=== PATIENT | male | born 1955 | race Caucasian/White ===

== ENCOUNTER → 2017-03-11 | Outpatient (CLI) | payer OTHER ==
[~2017-03-11] MED LIST: ADVAIR 250-501 EACH INH; AMLODIPINE BESYL5 MG PO; ASPIRIN LO-DOSE81 MG PO; ATIVAN2 MG PO; CELEXA40 MG PO; COLACE100 MG PO; FLONASE 50 MCG/16 GM NOSE; GLUCOPHAGE500 MG PO; KLOR-CON 1010 MEQ PO; LASIX40 MG PO; LIPITOR40 MG PO; LOPRESSOR50 MG PO; NITROGLYCERIN4.9 GM SL; NUCYNTA50 MG PO; PROTONIX40 MG PO; PROVENTIL OR V6.7 GM INH; ZESTRIL2.5 MG PO; ZOCOR80 MG PO
[2017-03-11 12:26] LABS: ALBUMIN 3.7 gm/dL (3.5-5.0); ALK PHOS 88 IU/L (33-138); ALT 51 IU/L (12-78); ANION GAP 12.7 (10.0-19.0); AST 13 IU/L (10-40); BLOOD UREA NITROGEN 18 mg/dL (6-24); CHLORIDE 107 mMol/L (96-110); CO2 25 mMol/L (22-32); CPK 72 IU/L (35-332); CREATININE 1.2 mg/dL (0.6-1.3); ESTIMATED GFR (MDRD EQUATION) > 60; POTASSIUM 4.7 mMol/L (3.7-5.1); SODIUM 140 mMol/L (135-145); TOTAL BILIRUBIN 0.5 mg/dL (0.0-1.5); TOTAL PROTEIN 7.4 g/dL (6.0-8.4)
== END | disposition disaster alternative care site (69) ==
LOC: LNHI 11:59
PROVIDERS: Internal Medicine Interventional Cardiology
DX: E78.5 Hyperlipidemia, unspecified (principal); I10 Essential (primary) hypertension; I25.10 Atherosclerotic heart disease of native coronary artery without angina pectoris; R07.9 Chest pain, unspecified

== ENCOUNTER 2017-03-13 07:54 | Outpatient (CLI) | payer OTHER ==
--- NOTE | ~2017-03-13 | PUL ---
PATIENT'S NAME: FLAQUITA URIBE [facility] AGE: 61 Y [address] ROOM: [place] [address] LOCATION: GPCU ADMIT DATE: 03/13/2017 Pulmonary DISCHARGE DATE: 03/13/2017 FAMILY PHYSICIAN: Jesús Nelson MD ATTENDING PHYSICIAN: Lorena Peoples NAME OF PROCEDURE: Pulmonary Function Test DATE OF PROCEDURE: March 13, 2017 TECH: SILVERIO Maldonado REASON FOR EXAM: Pre-surgical evaluation RESULTS: Spirometry reveals normal FVC at 3.43 which is 83% predicted, decreased FEV1 at 2.35 which is 75% predicted, decreased FEV1/FVC ratio at 68%. There is a significant bronchodilator response at the level of FEV1. PHYSICIAN INTERPRETATION: Mild obstruction airway disease with a mild bronchodilator response. MD JESSICA MCKEON/haile /[id number] dtt: 03/23/17 1052 Genia George S. dtd: 03/17/17 1127
--- NOTE | ~2017-03-13 | CATH ---
Cardiac Diagnostic Report Demographics Patient Name JOJO Ro Gender Male Date of 1955 Age 61 year(s) Patient Number [id number] Date of Study 03/13/2017 Visit Number [id number] Room Number G63[address] [place] [id number] Ht 137.16 cm Wt 93 kg Referring [facility] Primary Physician Physician Lorena TOVAR Performing [facility] Secondary Physician Physician Lorena TOVAR Diagnostic [facility] Assisting Physician Physician Lorena TOVAR Interventional Physician Catapult And Arresting Gear Officer Physician Findings and Conclusions Diagnostic Findings and Conclusion Multi vessel coronary artery disease. Obstructive in-stent restenosis of RCA and LAD, LCx. Diagnostic Recommendations Refer for CT consult, given triple vessel disease with significant ISR in all three vessels. Reviewed angiogram with Dr. Sousa. He is scheduled for consult in CT surgery clinic on 03/16/2017. Procedure Description The patient was brought to the diagnostic cardiac catheterization-EP laboratory in the fasting, non-sedated state. Informed consent was obtained in the written and verbal form after the risks and benefits were explained. The patient had no further questions and agreed to proceed. The planned puncture-incision site(s) were shaved and prepped with ChloraPrep and draped in the usual sterile manner. Conscious sedation, supplemental oxygen, and pain control medications were delivered by a registered nurse under physician guidance. Surface ECG rhythm, blood pressure measurement, and pulse oximetry were monitored throughout the procedure. Arterial access. The access site was infiltrated with lidocaine. The vessel was entered with the Seldinger technique. A sheath was advanced into the vessel and used for catheter placement. Selective left coronary angiography. A catheter was advanced into the left coronary vessel ostium under Fluoroscopic guidance. Contrast was injected by hand. Images were obtained in multiple projections. Selective right coronary angiography. A catheter was advanced into the right coronary vessel ostium under fluoroscopic guidance. Contrast was injected by hand. Images were obtained in multiple projections. Arterial artery hemostasis was achieved. The patient was transferred to pre-post surgical unit via cart accompanied by a nurse. The patient left the laboratory in stable condition. Diagnostic Cath Status: Elective Procedure Procedure Type Diagnostic procedure:Angiography:, Coronary Angios w/[facility] Indications: Unstable angina. The procedure was explained in detail to the patient. Risks, complications and alternative treatments were reviewed. Written consent was obtained. Medications Reviewed with Patient prior to Procedure. Angiographic Findings Dominance: Right Cardiac Arteries and Lesion Findings LMCA: Normal (0% Stenosis). LAD: Abnormal. Lesion on Mid LAD: 80% stenosis . The lesion was previously treated on 05/18/2010 with the following techniques: drug eluting stent. This is in-stentrestenosis. Lesion on 1st Diag: Ostial.60% stenosis . LCx: Abnormal. Lesion on Mid CX: 80% stenosis . The lesion was previously treated with the following techniques: stent unknown type. This is in-stentrestenosis. RCA: Abnormal.PL and PDA is normal Lesion on Prox RCA: 90% stenosis .Culprit lesion. Lesion on Mid RCA: 60% stenosis . Coronary Tree Procedure Data Procedure Date Date: 03/13/2017Start: 09:35 AMEnd: 11:14 AM Entry Locations - Retrograde Percutaneous access was performed through the Right Femoral artery (Primary location). A 6 Fr sheath was inserted. Procedure Medications Order and Administration + + + + + !Time !Medication !Dosage !Route ! + + + + + !03/13/2017 09:30 AM !Versed !1 mg !I.V. ! + + + + + !03/13/2017 09:35 AM !Fentanyl !25 mcg !I.V. ! + + + + + !03/13/2017 09:38 AM !Versed !0.5 mg !I.V. ! + + + + + !03/13/2017 09:38 AM !Fentanyl !25 mcg !I.V. ! + + + + + !03/13/2017 10:04 AM !Versed !0.5 mg !I.V. ! + + + + + !03/13/2017 10:05 AM !Fentanyl !25 mcg !I.V. ! + + + + + !03/13/2017 10:06 AM !Heparin (ACC_3) !4000 units !I.V. bolus ! + + + + + !03/13/2017 10:49 AM !0.9% NaCl !500 ml !I.V. bolus ! + + + + + Devices Used - A6 Fr. BS JL 4 Diag. Catheterwas used for:Left coronary angiography. - A5 Fr. BS JR 4 Diag. Catheterwas used for:Right coronary angiography. Contrast Material - Isovue 41772 ml Fluoroscopy Time: Diagnostic: 2:24 minutes. Total: 2:24 minutes. Estimated Blood Loss: 5 ml. Medical History History of Disease + + + + !Diagnosis !Date !Comments ! + + + + !Hypertension ! ! ! + + + + Allergies - Codiene. - Other:(tramadol). Risk Factors The patient risk factors include:prior PCI on 05/18/2010;hypercholesterolemia, hypertension, family history of premature CAD, last creatinine: 1.2 mg/dl, creatinine clearance: 87.19 ml/min, dyslipidemia, prior heart failure and prior MS . Admission Data Admission Date: 03/13/2017 Admission Time: 07:54 AM Admit Source: Other Insurance Payors: Private health insurance. Admission Medications + +------+------+ + + + + !Medication !Dosage!Times !Last !Last !Administered !Comments ! ! ! !Per !Delivery !Delivery ! ! ! ! ! !Day !Date !Time ! ! ! + +------+------+ + + + + !Aspirin ! ! !03/13/2017 !12:00 AM !Yes ! ! !(any) ! ! ! ! ! ! ! + +------+------+ + + + + !Beta ! ! !03/13/2017 !12:00 AM !Yes ! ! !Marina ! ! ! ! ! ! ! !(any) ! ! ! ! ! ! ! + +------+------+ + + + + Clinical Evaluation Leading to Procedure Diagnosed on 03/11/2017 02:20 PM. - The patient's CAD presentation was assessed as: Unstable angina. - The patient's anginal syndrome during the past two weeks was assessed as: Class III according to the [place] Cardiovascular Society Classification System (CCS). Anti-anginal medications were prescribed during the past two weeks. The medications are: Beta Blockers and Ca channel Blockers. - The patient has been in a state of heart failure within the past two weeks. - The patient's heart failure status was assessed as NYHA Class II, with CHF symptoms of MCLAIN. Hemodynamics Condition: Rest O2 Consumption: Estimated: 206.07Heart Rate: 70 bpm Pressures (mmHg) +-----+ + !Site !Pressure ! +-----+ + !AO !109/ (92) ! +-----+ + !AO !/69 (83) ! +-----+ + Shunts Oxygen Values O2 Consumption 206.07 Signatures dtt: LORENA CLARKE dtd: 03/13/17 0935 Physician Self Edit
[~2017-03-13 07:54] MED LIST changes: -COLACE100 MG PO; -GLUCOPHAGE500 MG PO; -KLOR-CON 1010 MEQ PO; -LASIX40 MG PO; -LIPITOR40 MG PO; -NITROGLYCERIN4.9 GM SL; -NUCYNTA50 MG PO; -ZESTRIL2.5 MG PO
[2017-03-13 13:49] LABS: BICARBONATE 24.2 mmol/L (18.0-23.0); PCO2 40 mmHg (35-45); PO2 80 mmHg (80-90)
[2017-03-13 15:23] LABS: BILIRUBIN URINE NEGATIVE (NEGATIVE); BLOOD URINE NEGATIVE /UL (NEGATIVE); COLOR URINE YELLOW (YELLOW); GLUCOSE URINE NEGATIVE (NEGATIVE); KETONE URINE NEGATIVE (NEGATIVE); LEUKOCYTES URINE NEGATIVE /UL (NEGATIVE); NITRITE URINE NEGATIVE (NEGATIVE); PROTEIN URINE NEGATIVE (NEGATIVE); SPEC GRAVITY URINE 1.015 (1.003-1.035); TURBIDITY URINE CLEAR (CLEAR); UROBILINOGEN URINE NORMAL (NORMAL)
== END 2017-03-13 15:25 | disposition disaster alternative care site (69) ==
LOC: GCAT 07:54 → GPCU 07:54 → GPOC 08:00 → GCAT 08:00 → GPCU 10:26 → GCAT 15:25
PROVIDERS: Internal Medicine Interventional Cardiology
DX: I25.10 Atherosclerotic heart disease of native coronary artery without angina pectoris (principal); I10 Essential (primary) hypertension; E78.5 Hyperlipidemia, unspecified
CPT/HCPCS: C1894; J0583; J1644; J2001; J2250; J2370; J3010; J7030; J7060

== ENCOUNTER 2017-03-16 13:29 | Inpatient (IN) | payer OTHER ==
[~2017-03-16] VITALS: Ht 167.6 cm; Wt 91.2 kg
--- NOTE | ~2017-03-16 | CON ---
PATIENT'S NAME: FLAQUITA URIBE [facility] AGE: 61 Y [address] ROOM: [place] [address] LOCATION: GPOC ADMIT DATE: 03/16/2017 Consultation DISCHARGE DATE: FAMILY PHYSICIAN: Jesús Nelson MD ATTENDING PHYSICIAN: Sumanth Salamanca DATE OF CONSULTATION: 03/16/2017 REQUESTING PHYSICIAN: Lorena Peoples M.D. REASON FOR CONSULTATION: Multivessel coronary artery disease. HISTORY OF PRESENT ILLNESS: The patient is a 61-year-old white male with complaints of dyspnea on exertion as well as worsening chest discomfort that has been occurring over the last 2 weeks. There was also some left arm radiation associated with the unstable angina. The patient does have a history of coronary artery disease with previous stent placement approximately 7 years ago. The stents were placed to the RCA and LAD and left circumflex. The patient was seen in consultation by Dr. Peoples for the complaints of chest discomfort. It is recommended that he undergo a cardiac catheterization, especially in light of his history. The patient presents for this left heart catheterization on March 13, 2017. Findings were for obstructive In-stent restenosis of the RCA and LAD and circumflex. The findings revealed no left main disease. To the LAD, there is mid 80% in-stent restenoses. To the first diagonal, 60% occlusion. To the mid circumflex, 80% in-stent restenosis and a 90% RCA in-stent restenosis. There is also to the midportion of the RCA, 60% occlusion. The EF was estimated to be at 60%. The patient discharged after discussing with Dr. Peoples the findings of the cardiac catheterization and planned to be seen in consultation today by Dr. Salamanca in cardiothoracic surgery for consideration of surgical revascularization for which the patient hoped to proceed with surgery on March 17. PAST MEDICAL HISTORY: ILLNESSES: 1. Dyslipidemia. 2. Hypertension. 3. Previous myocardial infarction. 4. Renal insufficiency. 5. Depression. 6. GERD. 7. Seasonal allergies. PATIENT'S NAME: FLAQUITA URIBE [facility] AGE: 61 Y [address] ROOM: [place] [address] LOCATION: GPOC ADMIT DATE: 03/16/2017 Consultation DISCHARGE DATE: FAMILY PHYSICIAN: Jesús Nelson MD ATTENDING PHYSICIAN: Sumanth Salamanca SURGERIES/PROCEDURES: 1. Cervical disc fusion. 2. Sinus and nasal surgery. 3. Right rotator cuff surgery. 4. Percutaneous intervention with stenting, multiple in 2009 this to the RCA and LAD in circumflex. 5. Appendectomy. 6. Tonsillectomy. ALLERGIES: EES, CODEINE, AND TRAMADOL ALL WHICH CAUSES SHORTNESS OF BREATH. SOCIAL HISTORY: The patient is . He and his have been 41 years as of today. 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 At that time, he was smoking three packs of cigarettes a day and has done so for 35 years. He has since discontinued smoking. He does not imbibe. He has 3 grown children. FAMILY HISTORY: Significant for premature coronary artery disease with his mother having a severe myocardial infarction and his maternal grandfather having severe myocardial infarction for which his grandfather . His father had history with prostate cancer. CURRENT MEDICATIONS: Include: 1. Albuterol 1 puff q.4 hours p.r.n. for shortness of breath. 2. Amlodipine 5 mg daily. 3. Aspirin 81 mg daily. 4. Celexa 40 mg q.a.m. 5. Flonase 50 mcg one puff b.i.d. 6. Advair 250/50 one puff b.i.d. 7. Ativan 2 mg at bedtime. 8. Lopressor 75 mg p.o. b.i.d. 9. Protonix 40 mg daily. 10. Zocor 40 mg at bedtime. SYSTEM REVIEW: GENERAL: He has not had any change in his weight or appetite. No fever, chills, or sweats. No obvious fatigue or change in routine habits. HEENT: No visual complaints. Does wear corrective lenses. No hearing complaints. ALLERGIES: He does have seasonal allergies for which he takes medication. No PATIENT'S NAME: FLAQUITA URIBE [facility] AGE: 61 Y [address] ROOM: [place], [place] [address] LOCATION: GPOC ADMIT DATE: 03/16/2017 Consultation DISCHARGE DATE: FAMILY PHYSICIAN: Jesús Nelson MD ATTENDING PHYSICIAN: Sumanth Salamanca difficulty with swallowing, change in voice, or hoarseness. RESPIRATORY: No unusual cough. Some occasional wheezing with history of asthma. He has been dyspneic on exertion, especially over the last 2 weeks. CARDIOVASCULAR: Some intermittent chest discomfort with no overt chest pain. No intermittent claudication. No problems with persistent lower extremity edema. GI: No nausea, vomiting, constipation, or diarrhea. There is history of GERD for which he takes medication. : No voiding complaints. MUSCULOSKELETAL: Some generalized arthritic aches and pains. Does not require ambulatory devices. NEUROLOGIC: No frequent or severe headaches. No history of seizures, memory loss, or syncope. PSYCHIATRIC: Does have a history with depression. Does take antidepressant medication. ENDOCRINE: No diagnosed history of diabetes or thyroid conditions. INTEGUMENTARY: No known skin diseases. PHYSICAL EXAMINATION: VITAL SIGNS: Blood pressure 124/81, pulse is 68, respirations 18, temp is 97.9, O2 saturations 93% on room air. His height is 5 feet 6 inches. His weight is 205 pounds. GENERAL: He is a very pleasant. In no acute distress. His is present for the consultation. HEENT: Normocephalic with EOMIs intact. Conjunctivae clear. Atraumatic. LUNGS: Clear to auscultation to the anterior. CARDIOVASCULAR: Regular rate and rhythm with no murmur detected. ABDOMEN: Obese. Soft. Nontender by 4 quadrants. Positive bowel sounds throughout. EXTREMITIES: No overt varicosities or edema. MUSCULOSKELETAL: Good range of motion of bilateral upper and lower extremities. NEUROLOGICAL: Alert and oriented x3. Strength is symmetrical. SKIN: No suspicious skin lesions. LABORATORY AND TEST RESULTS: Pre-albumin is 34, hemoglobin A1C 0.6, TSH 2.24. PFT revealed moderate obstruction. Cholesterol 227, triglycerides 213, HDL 47, and LDL 138. Creatinine is 1.4. IMPRESSION: 1. Multivessel coronary artery disease with obstructive in-stent restenosis of the RCA, LAD, and left circumflex. 2. Renal insufficiency. 3. Elevated hemoglobin A1c. PATIENT'S NAME: FLAQUITA URIBE [facility] AGE: 61 Y [address] ROOM: [place] [address] LOCATION: GPOC ADMIT DATE: 03/16/2017 Consultation DISCHARGE DATE: FAMILY PHYSICIAN: Jesús Nelson MD ATTENDING PHYSICIAN: Sumanth Salamanca AND PLAN: Dr. Salamanca reviewed the findings of the cardiac catheterization with the patient and his . Discussion to include surgical revascularization to the obstructive areas consisting of 3 to 4 vessel bypass. Risks and benefits of the procedure were discussed. Length of stay and restrictions, thereafter, were covered. Discussion of the risks includes, but not limited to, bleeding, requiring transfusion, return to the operative suite, myocardial infarction, cerebrovascular accident, renal and/or pulmonary failure. Also discussed were arrhythmias and infection as well as operative and postoperative mortality. The patient does consent to proceed with surgical revascularization. The preoperative workup has been obtained and we will plan for March 17, 2017. We would like to thank Dr. Peoples for allowing us to participate in the care of this very pleasant gentleman. CHRISTOFER AYERS APRN FOR SUMANTH SALAMANCA, DLQ/modl /[id number] d: 03/16/17 1841 t: 04/02/17 1524, CONSULTATION REPORT
--- NOTE | ~2017-03-16 | OR ---
PATIENT'S NAME: FLAQUITA CASTRO [facility] AGE: 61 Y [address] ROOM: [place] [address] LOCATION: [facility] ADMIT DATE: 03/17/2017 OR/Procedure Report DISCHARGE DATE: FAMILY PHYSICIAN: Jesús Nelson MD ATTENDING PHYSICIAN: Sumanth Sousa SURGEON: Sumanth Sousa DO RISK DEVELOPER: DATE OF PROCEDURE: 03/17/2017 PREOPERATIVE DIAGNOSIS: Multivessel coronary artery disease. POSTOPERATIVE DIAGNOSIS: Multivessel coronary artery disease. SECONDARY DIAGNOSES: 1. Chronic obstructive pulmonary disease. 2. Hypertension. 3. Borderline diabetes. 4. Hemoglobin A1c 6.6. PROCEDURE PERFORMED: Coronary artery bypass grafting x3, left internal mammary artery bypass to the LAD, reverse saphenous vein graft to the obtuse marginal, reverse saphenous vein graft to the posterior descending artery. REFERRING DOCTOR: Lorena Peoples MD. FAMILY PHYSICIAN: Jesús Nelson MD. BRIEF HISTORY: Mr. Castro is a 61-year-old white male with the above-noted diagnosis. He has had multiple stents in the past, and each of his major vessels were right coronary artery, circumflex artery, and LAD. Each of these areas has significant in-stent stenosis up to 90%. He has been brought to the operative suite today for surgical revascularization. DESCRIPTION OF PROCEDURE: He was sterilely prepped and draped in usual fashion for surgical revascularization. He was sterilely prepped and draped for sternotomy with lower extremity vein harvest. A sternal incision was made. The sternum was divided in the midline with sternal saw. Electrocautery was used for hemostasis along the marrow and sternal edges, and concurrently to this, the saphenous vein was harvested endoscopically from the lower extremity. The mammary retractor was placed. Left internal mammary artery was identified and then harvested utilizing surgical clips and electrocautery. Prior to its division, the patient was fully heparinized, and the mammary was divided and prepared for bypass. The mammary retractor was removed, and a sternal retractor was placed. Pericardium was opened. Pericardial wall was created. Cannulation sutures were placed in the PATIENT'S NAME: FLAQUITA CASTRO [facility] AGE: 61 Y [address] ROOM: [address] [address] LOCATION: [facility] ADMIT DATE: 03/17/2017 OR/Procedure Report DISCHARGE DATE: FAMILY PHYSICIAN: Jesús Nelson MD ATTENDING PHYSICIAN: Sumanth Sousa ascending aorta and right atrium for bypass and cardioplegic cannulas, and the patient was cannulated and connected to bypass pump without difficulty. The vein was then prepared for bypass. Crossclamp was applied. Antegrade and retrograde cardioplegia was given for cardiac arrest, and the heart arrested without difficulty. The posterior descending artery was identified, and an end-to-side vein graft anastomosed to this utilizing 7-0 Prolene. The graft was then sized appropriately and connected to the cardioplegia system. Another 500 mL of vein graft and retrograde cardioplegia was given. Similar venous distal anastomosis was then created to the obtuse marginal, just distal to its long area of stents. This artery was slightly intramyocardial, but was adequate size. The vein graft was completed and then the left internal mammary artery was anastomosed to the left anterior descending artery, again in an end-to-side fashion with 7-0 Prolene. The cross-clamp was removed and a partial occlusion clamp was applied. Our 2 proximals were anastomosed to the ascending aorta with 4-0 punch and 6-0 Prolene. Warm blood was being given in a retrograde fashion via the retrograde catheter and also the vein grafts, and then the partial occlusion clamp was removed. Each graft was then de-aired, bulldog removed, and distal flow was given. The retrograde cannula was now removed. Distal sites were hemostatic. Proximal sites were hemostatic. Two atrial and one ventricular temporary pacemaking wires were placed. Atrial pacing was initiated at 70. Ventilations were initiated and then we weaned from cardiopulmonary bypass without difficulty. Three chest tubes were placed, one left pleural, one posterior pericardial, one anterior mediastinal. Copious amounts of antibiotic-infused saline was used to irrigate the sternum and mediastinum, and the sternum was approximated with ZipFix system. Soft tissues were then irrigated again, closed in layered fashion. All sponge, instrument, and needle counts were correct. The patient was transferred to the intensive care unit in stable condition. DO RICARDO PANG/samanthal /[id number] d: 03/17/172041 t: 03/18/17 0741, OPERATIVE SUMMARY
--- NOTE | ~2017-03-16 | OR ---
PATIENT'S NAME: KRIS CASTRO [facility] AGE: 61 Y [address] ROOM: [place] [address] LOCATION: GICU ADMIT DATE: 03/17/2017 OR/Procedure Report DISCHARGE DATE: FAMILY PHYSICIAN: Jesús Nelson MD ATTENDING PHYSICIAN: Sumanth Sousa SURGEON: Henok Webb MD INTERIOR SURFACE INSULATION WORKER: DATE OF PROCEDURE: 03/17/2017 PROCEDURE PERFORMED: The following lines were placed during the patient's coronary artery bypass grafting operation. INDICATIONS FOR PROCEDURE: Kris Castro is a 61-year-old gentleman with relatively untreated adult-onset diabetes; some renal insufficiency; hypertension; and asthma, on home nebulizers. He quit smoking back in 2013. He presents today with the idea of a three-vessel CABG. Detailed discussion of risks and benefits was undertaken with the patient in the preop holding area. We discussed the arterial line, central line, and transesophageal echocardiogram. The patient agreed to the plan as stated. DESCRIPTION OF PROCEDURE: PROCEDURE #1: Procedure #[address] in the preop holding area which was placement of arterial line. The patient's right arm was extended, dorsiflexed the wrist, sterilely prepped with chlorhexidine, and topicalized over the radial pulse with 1% lidocaine, 1 mL. Through the resultant skin wheal, a 20- gauge Arrow art line kit was inserted contacting bright red arterial blood on the first pass. The wire threaded without difficulty and the catheter was then threaded into the artery without difficulty. This was then flushed with heparinized saline and affixed to the patient's wrist using sterile Tegaderm and tape. At that point, the path of the internal jugular vein was mapped using ultrasound, and after brief pause, we proceeded to OR #4, where he underwent uneventful induction of general anesthesia and intubation with an 8- 0 tube. PROCEDURE #2: With the airway thus controlled, procedure #[address] The patient was placed in Trendelenburg position. The path of the internal jugular vein was already mapped using ultrasound. I gloved and gowned for the procedure after sterile washing of my hands. Maximal sterile barrier was placed over the right internal jugular area of the neck having been previously prepped by my nurse. With the area prepped, the internal jugular vein was cannulated on the first pass using an 18-gauge needle. The wire threaded without difficulty. Brief nonsustained ectopy resolved with pullback. A small skin dolores was made and a 9-Latvian, 10 cm introducer was placed over the PATIENT'S NAME: KRIS CASTRO [facility] AGE: 61 Y [address] ROOM: [place] [address] LOCATION: GICU ADMIT DATE: 03/17/2017 OR/Procedure Report DISCHARGE DATE: FAMILY PHYSICIAN: Jesús Nelson MD ATTENDING PHYSICIAN: Sumanth Sousa wire into its hub, and the obturator lumen was filled by a three-lumen SLIC catheter. All lumens flushed and binh freely. The MAC introducer was sutured in place with 2-0 silk using a Jeremiah needle. Then the entire assemblage was covered with sterile Tegaderm. With the IV access being established, the patient's head was rotated to the midline. He was removed from Trendelenburg position, and his stomach was then suctioned with an 18-Latvian nasogastric tube. The transesophageal echo probe was then placed in the posterior pharynx and guided into the esophagus. The pictures obtained were of good quality and adequate for interpretation. FINDINGS AT PRE-BYPASS: 1. Mild concentric left ventricular hypertrophy. 2. No evidence of wall motion abnormalities with preserved ejection fraction. 3. Normal right ventricle. 4. The aortic valve was trileaflet without evidence of stenosis or regurgitation. 5. Mitral valve normal in morphology with trace of mitral regurgitation. 6. Tricuspid valve with trace of regurgitation. No evidence of PFO. The aorta itself was noted to be of normal caliber without much plaquing, a couple of discrete plaques were noted. The largest of which at the junction of distal and descending aorta was about 4.6 mm in height. No freely mobile plaque was observed. FINDINGS AT POST-BYPASS: 1. No new changes. Heart is more hyperdynamic. 2. No new wall-motion abnormalities were noted. 3. Valvular exam was unchanged. Thank you very much for allowing me to participate in Mr. Castro's care. If you have any questions regarding this echo for the lines, please do not hesitate to call. MD RONALD FLOWER/modl /[id number] d: 03/17/17 1425 t: 03/19/17 1401, OPERATIVE SUMMARY
--- NOTE | ~2017-03-16 | ENPV ---
Vascular Lower Extremity Vein Mapping Procedure Demographics Patient Name FLAQUITA URIBE Date of Study 03/16/2017 Patient Number [id number] Gender Male Date of 1955 Age 61 Visit Number [id number] Height Accession Number [id number] Weight Room Number G6214 BSA BMI Referring Merry Negrete DO Interpreting Noam Wellington MD Physician Physician Physician Ordering Physician Merry Negrete Scrap Picker DO Stand In Tristen Middleton BS, RT Conclusions Summary The right great saphenous vein was mapped and appears adequate for surgical use. The left great saphenous vein was mapped and appears adequate for surgical use. Procedure Type of Study: Veins:Lower Extremity Vein Mapping, Vein Mapping. Indications for Study:Pre-Op CABG. Appropriate Use Criteria:6 Allergies - Codiene. - Other:(tramadol). Patient Status:Routine. Study Location:Vascular Lab. Technical Quality:Adequate visualization. Risk Factors History of Disease + + + + !Diagnosis !Date !Comments ! + + + + !Hypertension ! ! ! + + + + Velocities are measured in cm/s ; Diameters are measured in cm + ++--------++--------+ !Superficial - Great Saphenous Vein !!Right !!Left ! + ++--------++--------+ !Location !!Diameter!!Diameter! + ++--------++--------+ !Sapheno Femoral Junction !!0.51 !!0.7 ! + ++--------++--------+ !GSV High Thigh !!0.54 !!0.56 ! + ++--------++--------+ !GSV Mid Thigh !!0.43 !!0.41 ! + ++--------++--------+ !GSV Low Thigh !!0.41 !!0.36 ! + ++--------++--------+ !GSV Knee !!0.39 !!0.4 ! + ++--------++--------+ !GSV High Calf !!0.37 !!0.33 ! + ++--------++--------+ !GSV Mid Calf !!0.41 !!0.37 ! + ++--------++--------+ !GSV Low Calf !!0.39 !!0.35 ! + ++--------++--------+ !GSV Ankle !!0.46 !!0.45 ! + ++--------++--------+ Signature dtt: CURT WATSON dttahmina: 03/16/17 1440 Physician Self Edit
--- NOTE | ~2017-03-16 | DS ---
PATIENT'S NAME: FLAQUITA URIBE [facility] AGE: 61 Y [address] ROOM: [address] [place], [place] [address] LOCATION: GPCU ADMIT DATE: 03/17/2017 Discharge Summary DISCHARGE DATE: 03/23/2017 FAMILY PHYSICIAN: Jesús Nelson MD ATTENDING PHYSICIAN: Sumanth Sousa HISTORY OF PRESENT ILLNESS: The patient is a 61-year-old white male with a history of coronary artery disease, prior myocardial infarction with previous stent procedures now with in-stent restenosis x3 vessels. He was seen and underwent cardiac catheterization with Dr. Peoples. Dr. Sousa has been asked to see the patient in consultation for coronary artery bypass grafting for which the patient did consent. On 03/17/2017, the patient presented to the operative suite for coronary artery bypass grafting x3 with the left internal mammary artery bypass to the LAD, reverse saphenous vein graft to the obtuse marginal, reverse saphenous vein graft to the posterior descending artery. The patient tolerated the surgery without complication. He transferred to the ICU postoperatively. He extubated within a couple of hours postop and without difficulty. On postoperative day 1, the patient's drips and lines were discontinued and he transferred to the Progressive Care Floor. While on Progressive Care, he worked with cardiac rehab for strengthening purposes. When appropriate, his chest tubes, pacemaking wires, and Jerry catheter were discontinued without complication. The patient had an uneventful hospital course. He had no healing complications. He had no runs of postoperative atrial fibrillation. His medications were optimized per his condition. Care Management worked with the patient and his for their desired care postoperatively. The patient and did not verbalize any needs. The patient was found stable by March 23, 2017 to discharge to home. DISCHARGE ORDERS: Include an ADA diet. Activity levels as per the open heart surgery discharge summary sheet. The patient was asked to follow up with Dr. Peoples and Dr. Sousa in 2 weeks on the same day. The patient was also asked to see his primary care provider Dr. Jesús Nelson in 1 week. FINAL DIAGNOSES: Include coronary artery disease, hypertension, dyslipidemia, renal insufficiency, gastroesophageal reflux disease, depression, history of tobaccoism, asthma, hyperglycemia with a hemoglobin A1c of 6.6, and seasonal allergies. The patient was asked to work with cardiac rehab on an outpatient basis and was asked to refrain from pulling, pushing, or lifting anything heavier than 10 pounds until April 28, 2017. DISCHARGE MEDICATIONS: Include: 1. Ativan 2 mg at h.s. 2. Advair 1 puff per inhalation twice a day. PATIENT'S NAME: FLAQUITA URIBE [facility] AGE: 61 Y [address] ROOM: [place] [address] LOCATION: GPCU ADMIT DATE: 03/17/2017 Discharge Summary DISCHARGE DATE: 03/23/2017 FAMILY PHYSICIAN: Jesús Nelson MD ATTENDING PHYSICIAN: Sumanth Sousa 3. Celexa 40 mg daily. 4. Aspirin 81 mg daily. 5. Protonix 40 mg daily. 6. Lopressor 50 mg twice a day. 7. Flonase 1 puff intranasally twice a day. 8. Proventil 2 puffs per inhalation 4 times a day. 9. Lipitor 40 mg daily. 10. Nitro sublingual p.r.n. chest pain. 11. Colace 100 mg twice a day. 12. Lasix 40 mg daily. 13. Metformin 500 mg b.i.d. (this is a new medication). 14. Potassium chloride 20 mEq twice a day. 15. Zestril 2.5 mg daily. 16. Nucynta 50 mg 1 every 4-6 hours p.r.n. The patient and verbalized understanding of the discharge orders. The patient is discharged to home in stable condition. CHRISTOFER AYERS, IMMIGRATION ATTORNEY FOR DO KOKI PANGQ/modl /[id number] d: 04/16/17521 t: 04/16/17 1008, DISCHARGE SUMMARY
--- NOTE | ~2017-03-16 | ENPV ---
Carotid Duplex Study Demographics Patient Name FLAQUITA URIBE Date of Study 03/16/2017 Patient Number [id number] Gender Male Date of 1955 Age 61 Visit Number [id number] Height Accession Number [id number] Weight Room Number BSA BMI Referring Merry Negrete DO Interpreting Noam Wellington MD Physician Physician Physician Ordering Physician Merry Negrete Precipitator DO Learning And Development Associate Tristen Middleton BS, RT Conclusions Summary The right internal carotid artery has mild, 1-39%, plaque and stenosis. The left internal carotid artery has mild, 1-39%, plaque and stenosis. The right vertebral artery is present with antegrade flow. The left vertebral artery is present with antegrade flow. Procedure Type of Study: Cerebral:Carotid, Carotid Doppler Bilateral. Indications for Study:Pre-op CABG. Appropriate Use Criteria:6 Allergies - Codiene. - Other:(tramadol). Patient Status:Routine. Study Location:Vascular Lab. Technical Quality:Adequate visualization. Risk Factors History of Disease + + + + !Diagnosis !Date !Comments ! + + + + !Hypertension ! ! ! + + + + Velocities are measured in cm/s ; Diameters are measured in cm Carotid Right Measurements Carotid Left Measurements + +--------+--------+ + + + +--------+ --------+ + + !Location !PSV !EDV !Angle !%Stenosis ! !Location !PSV ! EDV !Angle !%Stenosis ! + +--------+--------+ + + + +--------+ --------+ + + !Prox CCA !104 !23 !60 ! ! !Prox CCA !93 ! 21 !60 ! ! + +--------+--------+ + + + +--------+ --------+ + + !Dist CCA !70 !16 !60 ! ! !Dist CCA !79 ! 20 !60 ! ! + +--------+--------+ + + + +--------+ --------+ + + !Prox ICA !59 !20 !60 ! ! !Prox ICA !60 ! 24 !60 ! ! + +--------+--------+ + + + +--------+ --------+ + + !Dist ICA !38 !16 !60 ! ! !Dist ICA !32 ! 14 !58 ! ! + +--------+--------+ + + + +--------+ --------+ + + !Prox ECA !90 ! !60 ! ! !Prox ECA !109 ! !60 ! ! + +--------+--------+ + + + +--------+ --------+ + + !Vertebral !53 ! !60 ! ! !Vertebral !46 ! !60 ! ! + +--------+--------+ + + + +--------+ --------+ + + !Subclavian !82 ! !60 ! ! !Subclavian !96 ! !60 ! ! + +--------+--------+ + + + +--------+ --------+ + + - There is antegrade vertebral flow noted on the right side. - There is antegrade verte bral flow noted on the left side. - Add'l Measurements:ICAPSV/CCAPSV 0.57.ICAEDV/CCAEDV 0.89. - Add'l Measurements:ICAPS V/CCAPSV 0.65.ICAEDV/CCAEDV 1.12. Signature Electronically signed by Noam Wellington MD([facility] physician) on 03/16/2017 06:46 PM dtt: CURT WATSON dtd: 03/16/17 1416 Physician Self Edit
[2017-03-16 14:01] LABS: HEMATOCRIT 40.7 % (37.0-53.0); HEMOGLOBIN 14.3 g/dL (12.0-17.0); MCH 30.8 pg (27.0-34.0); MCHC 35.1 gm/dL (32.0-36.5); MCV 87.7 fl (83.0-98.0); MPV 9.7 fl (9.4-12.4); RBC 4.64 M/uL (4.00-6.00); RDW-CV 12.8 % (11.9-14.6); WBC 8.5 K/uL (4.0-11.0)
[2017-03-16 14:12] LABS: INR - (THERAPEUTIC) 0.9 (0.92-1.07); PROTIME 9.4 SECONDS (9.8-11.4)
[2017-03-16 14:18] LABS: ALBUMIN 3.6 gm/dL (3.5-5.0); ANION GAP 10.5 (10.0-19.0); CALCIUM 8.7 mg/dL (8.5-10.5); CREATININE 1.4 mg/dL (0.6-1.3); POTASSIUM 4.5 mMol/L (3.7-5.1); TOTAL BILIRUBIN 0.6 mg/dL (0.0-1.5); TOTAL PROTEIN 7.5 g/dL (6.0-8.4)
[2017-03-17 10:21] LABS: HEMOGLOBIN 8.9 g/dL (12.0-17.0); MCV 88.3 fl (83.0-98.0); WBC 8.1 K/uL (4.0-11.0)
[2017-03-17 10:28] LABS: HEMATOCRIT 25.6 % (37.0-53.0); MCH 30.7 pg (27.0-34.0); MCHC 34.8 gm/dL (32.0-36.5); PLATELET COUNT 118 K/uL (150-450)
[2017-03-17 10:30] LABS: PTT 28 SECONDS (25-32)
[2017-03-17 10:36] LABS: INR - (THERAPEUTIC) 1.12 (0.92-1.07); PROTIME 11.8 SECONDS (9.8-11.4)
[2017-03-17 11:09] LABS: ALPHA ANGLE 74 degrees; CLOTTING TIME 186 seconds; MAXIMUM CLOT FIRMNESS 58 mm
[2017-03-17 11:10] LABS: ALPHA ANGLE 70 degrees (70-81); CLOT FORMATION TIME 80 seconds; CLOTTING TIME 92 seconds (43-82); MAXIMUM CLOT FIRMNESS 60 mm (51-72); MAXIMUM LYSIS 0 %
[2017-03-17 11:16] LABS: PCO2 46 mmHg (35-45)
[2017-03-17 11:17] LABS: PO2 111 mmHg (80-90)
[2017-03-17 11:28] LABS: ANION GAP 12.4 (10.0-19.0); BLOOD UREA NITROGEN 17 mg/dL (6-24); CALCIUM 7.9 mg/dL (8.5-10.5); CHLORIDE 109 mMol/L (96-110); CO2 26 mMol/L (22-32); CREATININE 1.2 mg/dL (0.6-1.3); ESTIMATED GFR (MDRD EQUATION) > 60; POTASSIUM 4.4 mMol/L (3.7-5.1); SODIUM 143 mMol/L (135-145)
[2017-03-17 11:41] LABS: PCO2 39 mmHg (35-45); PO2 382 mmHg (80-90)
[2017-03-17 11:42] LABS: PCO2 48 mmHg (35-45)
[2017-03-17 11:42] LABS: BICARBONATE 22.9 mmol/L (18.0-23.0); POTASSIUM 5.4 mEq/L (3.7-5.1); SODIUM 138 mEq/L (135-145)
[2017-03-17 11:43] LABS: BICARBONATE 25.2 mmol/L (18.0-23.0); PO2 170 mmHg (80-90); SODIUM 134 mEq/L (135-145)
[2017-03-17 11:44] LABS: POTASSIUM 7.7 mEq/L (3.7-5.1)
[2017-03-17 11:44] LABS: BICARBONATE 25.2 mmol/L (18.0-23.0); PCO2 51 mmHg (35-45); PO2 186 mmHg (80-90)
[2017-03-17 11:45] LABS: POTASSIUM 7.2 mEq/L (3.7-5.1); SODIUM 136 mEq/L (135-145)
[2017-03-17 11:46] LABS: BICARBONATE 23.4 mmol/L (18.0-23.0); PCO2 38 mmHg (35-45); PO2 159 mmHg (80-90); POTASSIUM 5.1 mEq/L (3.7-5.1); SODIUM 136 mEq/L (135-145)
[2017-03-17] MEDS ORDERED: LIPITOR40 MG PO (19:07)
[2017-03-17] MEDS ORDERED: NITROGLYCERIN4.9 GM SL (19:10)
[2017-03-18 04:06] LABS: BICARBONATE 29.8 mmol/L (18.0-23.0); PCO2 47 mmHg (35-45)
[2017-03-18 04:07] LABS: PO2 61 mmHg (80-90)
[2017-03-18 04:22] LABS: CALCIUM 8.2 mg/dL (8.5-10.5); CREATININE 1.5 mg/dL (0.6-1.3)
[2017-03-18 04:43] LABS: HEMOGLOBIN 10.5 g/dL (12.0-17.0); MCH 30.4 pg (27.0-34.0); MCV 89.6 fl (83.0-98.0); MPV 10.3 fl (9.4-12.4); RBC 3.45 M/uL (4.00-6.00); RDW-CV 13.4 % (11.9-14.6); WBC 10.8 K/uL (4.0-11.0)
[2017-03-18 04:47] LABS: HEMATOCRIT 30.9 % (37.0-53.0)
[2017-03-20 05:11] LABS: HEMATOCRIT 30.6 % (37.0-53.0); HEMOGLOBIN 10.1 g/dL (12.0-17.0)
[2017-03-20 05:15] LABS: ALBUMIN 3.1 gm/dL (3.5-5.0); ANION GAP 10.5 (10.0-19.0); BLOOD UREA NITROGEN 15 mg/dL (6-24); CALCIUM 8.5 mg/dL (8.5-10.5); CHLORIDE 104 mMol/L (96-110); CO2 28 mMol/L (22-32); CREATININE 1.1 mg/dL (0.6-1.3); ESTIMATED GFR (MDRD EQUATION) > 60; PHOSPHORUS 2.4 mg/dL (2.5-4.9); POTASSIUM 4.5 mMol/L (3.7-5.1); SODIUM 138 mMol/L (135-145)
[2017-03-23 03:18] LABS: BASOPHIL # 0.1 K/uL (0.0-0.2); BASOPHIL % 0.6 %; EOSINOPHIL # 0.1 K/uL (0.0-0.5); EOSINOPHIL % 1.5 %; HEMATOCRIT 34.5 % (37.0-53.0); HEMOGLOBIN 11.6 g/dL (12.0-17.0); IMMATURE GRANULOCYTE # 0.1 K/uL (0.0-0.3); LYMPHOCYTE # 1.5 K/uL (0.8-4.0); LYMPHOCYTE % 17.2 %; MCH 30.5 pg (27.0-34.0); MCHC 33.6 gm/dL (32.0-36.5); MCV 90.8 fl (83.0-98.0); MONOCYTE # 0.9 K/uL (0.0-1.0); MONOCYTE % 10.8 %; MPV 9.6 fl (9.4-12.4); NEUTROPHIL # (ANC) 5.9 K/uL (1.4-9.0); NEUTROPHIL % 68.9 %; NRBC % 0 /100WBC (0-0.00); WBC 8.6 K/uL (4.0-11.0)
[2017-03-23 03:29] LABS: PLATELET COUNT 210 K/uL (150-450)
[2017-03-23 03:34] LABS: ANION GAP 11.7 (10.0-19.0); BLOOD UREA NITROGEN 24 mg/dL (6-24); CALCIUM 8.7 mg/dL (8.5-10.5); CHLORIDE 106 mMol/L (96-110); CO2 25 mMol/L (22-32); CREATININE 1.1 mg/dL (0.6-1.3); ESTIMATED GFR (MDRD EQUATION) > 60; MAGNESIUM 2.6 mg/dL (1.8-2.6); POTASSIUM 4.7 mMol/L (3.7-5.1); SODIUM 138 mMol/L (135-145)
[2017-03-23] MEDS ORDERED: COLACE100 MG PO (11:34)
[2017-03-23] MEDS ORDERED: LASIX40 MG PO (11:37)
[2017-03-23] MEDS ORDERED: GLUCOPHAGE500 MG PO (11:38)
[2017-03-23] MEDS ORDERED: KLOR-CON 1010 MEQ PO (11:42)
[2017-03-23] MEDS ORDERED: ZESTRIL2.5 MG PO (11:46)
[2017-03-23] MEDS ORDERED: NUCYNTA50 MG PO (11:48)
== END 2017-03-23 12:53 | disposition disaster alternative care site (69) | DRG 236 ==
LOC: GPOC 13:29 → GICU 03-17 05:03 → EDSTATUS 03-17 14:00 → GPCU 03-18 17:00
PROVIDERS: Nurse Practitioner Women's Health; Thoracic Surgery (Cardiothoracic Vascular Surgery); ADMIT Thoracic Surgery (Cardiothoracic Vascular Surgery)
PROC: 3E080GC Introduction of Other Therapeutic Substance into Heart, Open Approach (ICD-10-PCS; principal; 2017-03-17)
PROC: 02100Z9 Bypass Coronary Artery, One Artery from Left Internal Mammary, Open Approach (ICD-10-PCS; principal; 2017-03-17)
PROC: 06BY0ZZ Excision of Lower Vein, Open Approach (ICD-10-PCS; principal; 2017-03-17)
PROC: 5A1221Z Performance of Cardiac Output, Continuous (ICD-10-PCS; principal; 2017-03-17)
PROC: 0211093 Bypass Coronary Artery, Two Arteries from Coronary Artery with Autologous Venous Tissue, Open Approach (ICD-10-PCS; principal; 2017-03-17)
DX: I25.10 Atherosclerotic heart disease of native coronary artery without angina pectoris (principal); N18.3 Chronic kidney disease, stage 3 (moderate); I10 Essential (primary) hypertension; E78.5 Hyperlipidemia, unspecified; Z88.5 Allergy status to narcotic agent; K21.9 Gastro-esophageal reflux disease without esophagitis; J45.909 Unspecified asthma, uncomplicated; Z87.891 Personal history of nicotine dependence; Z95.5 Presence of coronary angioplasty implant and graft; I25.2 Old myocardial infarction; Z90.49 Acquired absence of other specified parts of digestive tract
CPT/HCPCS: A9270; C1769; J0282; J0690; J1644; J1650; J1885; J2150; J2250; J2270; J2405; J2440; J2765; J3475; J3480; J3490; J7030; J7040; J7050; J7060; J7121; P9045; P9047

== ENCOUNTER → 2017-04-08 | Outpatient (CLI) | payer OTHER ==
[~2017-04-08] MED LIST changes: +COLACE100 MG PO; +GLUCOPHAGE500 MG PO; +KLOR-CON 1010 MEQ PO; +LASIX40 MG PO; +LIPITOR40 MG PO; +NITROGLYCERIN4.9 GM SL; +NUCYNTA50 MG PO; +ZESTRIL2.5 MG PO
== END ==
LOC: LNHI 16:34
DX: I25.10 Atherosclerotic heart disease of native coronary artery without angina pectoris (principal); I10 Essential (primary) hypertension; R53.83 Other fatigue

== ENCOUNTER → 2017-04-09 | Outpatient (CLI) | payer OTHER | END | disposition disaster alternative care site (69) | LOC: GDIC 09:29 | DX: E11.65 Type 2 diabetes mellitus with hyperglycemia (principal) | CPT/HCPCS: G0108 ==

== ENCOUNTER 2017-05-24 09:23 | Emergency (ER) | payer OTHER ==
--- NOTE | ~2017-05-24 | ER ---
PATIENT'S NAME: FLAQUITA URIBE [facility] AGE: 62 Y [address] ROOM: [place] [address] LOCATION: [facility] ADMIT DATE: 05/24/2017 ER/Outpatient Report DISCHARGE DATE: 05/24/2017 FAMILY PHYSICIAN: Jesús Nelson MD ATTENDING PHYSICIAN: Roger John TIME OF ARRIVAL: 0923 hours. TIME OF EVALUATION: 0924 hours. CHIEF COMPLAINT: Chest pain. HISTORY OF PRESENT ILLNESS: The patient is a 62-year-old male who presents to the emergency department today with chief complaint of chest pain. He reports he underwent CABG [address] Sousa. He reports he has had this chest pain ever since. He reports some mild shortness of breath. It does go into both arms. It is a sharp, pressure-type pain. Has some nausea, no vomiting. He reports it is worse when he was picking up a tree limbs. 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 The patient denies any ripping or tearing sensation. No radiation to the back. He denies any fevers or chills. No diarrhea or constipation. Denies any current pain at this time. PAST MEDICAL HISTORY: Non-insulin dependent diabetes, COPD, gastroesophageal reflux disease, coronary artery disease, hypertension, migraine, hiatal hernia. PAST SURGICAL HISTORY: Coronary artery bypass grafting and hand. SOCIAL HISTORY: The patient quit smoking 14 years ago. Drinks alcohol rarely. Denies any illicit drug use. ALLERGIES: TO ULTRAM, ERYTHROMYCIN, CODEINE. MEDICATIONS: Please see list. PRIMARY CARE DOCTORS: PATIENT'S NAME: FLAQUITA URIBE [facility] AGE: 62 Y [address] ROOM: [place], [place] [address] LOCATION: ED ADMIT DATE: 05/24/2017 ER/Outpatient Report DISCHARGE DATE: 05/24/2017 FAMILY PHYSICIAN: Jesús Nelson MD ATTENDING PHYSICIAN: Roger John MD. REVIEW OF SYSTEMS: All systems are reviewed by myself and are negative with the exception of those discussed in HPI and past medical history. PHYSICAL EXAMINATION: VITAL SIGNS: Weight 89.7 kg. Blood pressure 137/84, pulse 78, respiratory rate 16, temperature 98.4, oxygen saturation 97% on room air. GENERAL: The patient is a 62-year-old male who appears stated age, in no acute distress at this time. HEENT: Head is normocephalic and atraumatic. Pupils are equal, round, and reactive to light. NECK: Supple. There is no nuchal rigidity. CARDIOVASCULAR: Regular rate and rhythm. No murmurs, rubs, gallops. LUNGS: Clear to auscultation bilaterally. No wheezes, rales, or rhonchi. ABDOMEN: Soft, nontender, and nondistended. No rebound, rigidity, or guarding. MUSCULOSKELETAL: The patient does have tenderness to palpation along the anterior chest wall. SKIN: Warm and dry. The anterior surgical incision is clean, dry, and intact. LABORATORY DATA AND X-RAYS: EKG is obtained, interpreted by myself at 0932 hours shows sinus rhythm with a rate of 75, normal axis, normal interval. No ST elevation, ST depression, T- wave inversions in V1, V2, V3. CBC is normal. Coags are normal. CK-MB and troponin are normal. CMP is unremarkable except for a BUN 26. LFTs are normal. Magnesium is normal. Two-view chest x-ray shows no acute process. Repeat EKG is obtained at 1133 hours is interpreted by myself as well shows sinus rhythm with a rate of 72, normal axis, normal interval. No ST elevation or ST depression. There is T-wave inversions in V1, V2, V3. There is no significant change from 04/08/2017. Repeat 2-hour cardiac enzymes are normal. IMPRESSION: 1. Chest pain, unspecified. 2. Initial visit. EMERGENCY DEPARTMENT COURSE: The patient brought back to the examination room. Seen and evaluated by myself. IV is established. Laboratory analysis and imaging are obtained as described above. The patient is given three baby aspirin. The patient does report he is currently having no pain at this time. Two heart enzymes are returned and those are normal as well. I have discussed these results with the patient. I have recommended a close followup with Dr. Sousa in 1 to 2 PATIENT'S NAME: FLAQUITA URIBE [facility] AGE: 62 Y [address] ROOM: [place] [address] LOCATION: [facility] ADMIT DATE: 05/24/2017 ER/Outpatient Report DISCHARGE DATE: 05/24/2017 FAMILY PHYSICIAN: Jesús Nelson MD ATTENDING PHYSICIAN: Roger John. I have also asked that he follows up with Dr. Nelson in 2-3 days for re- evaluation. I have discussed return to care instructions including worsening symptoms or any other concerns to return to the emergency department as soon as possible. The patient is agreeable he is without further questions at this time. DISPOSITION,: The patient discharged home in good condition. DO HU PHIPPS/samanthal /[id number] d: 05/24/17 1238 t: 05/25/17 0748, OUTPATIENT REPORT
[2017-05-24 09:44] LABS: BASOPHIL % 0.4 %; EOSINOPHIL # 0.1 K/uL (0.0-0.5); EOSINOPHIL % 0.7 %; HEMATOCRIT 40.5 % (37.0-53.0); HEMOGLOBIN 13.9 g/dL (11.0-16.0); IMMATURE GRANULOCYTE % 0.5 %; LYMPHOCYTE % 26.7 %; MCH 30.8 pg (27.0-34.0); MCHC 34.3 gm/dL (32.0-36.5); MCV 89.6 fl (83.0-98.0); MONOCYTE # 0.7 K/uL (0.0-1.0); MONOCYTE % 9.1 %; NEUTROPHIL # (ANC) 4.8 K/uL (1.4-9.0); NEUTROPHIL % 62.6 %; NRBC % 0 /100WBC (0-0.00); RBC 4.52 M/uL (3.50-5.50); RDW-CV 14.3 % (11.9-14.6); WBC 7.6 K/uL (4.0-11.0)
[2017-05-24 09:45] LABS: PLATELET COUNT 193 K/uL (150-450)
[2017-05-24 09:55] LABS: INR - (THERAPEUTIC) 0.92 (0.92-1.07); PROTIME 9.6 SECONDS (9.8-11.4); PTT 28 SECONDS (25-32)
[2017-05-24 10:04] LABS: ALBUMIN 3.8 gm/dL (3.5-5.0); ALK PHOS 113 IU/L (33-138); ALT 36 IU/L (12-78); ANION GAP 12.9 (10.0-19.0); AST 17 IU/L (10-40); BLOOD UREA NITROGEN 26 mg/dL (6-24); CHLORIDE 109 mMol/L (96-110); CO2 22 mMol/L (22-32); CPK 103 IU/L (35-332); CREATININE 1.3 mg/dL (0.6-1.3); MAGNESIUM 2.2 mg/dL (1.8-2.6); POTASSIUM 4.9 mMol/L (3.7-5.1); SODIUM 139 mMol/L (135-145); TOTAL BILIRUBIN 0.4 mg/dL (0.0-1.5); TOTAL PROTEIN 7.4 g/dL (6.0-8.4)
[2017-05-24 11:58] LABS: CPK 92 IU/L (35-332)
== END 2017-05-24 12:13 | disposition disaster alternative care site (69) ==
LOC: GMED 09:23
PROVIDERS: Emergency Medicine
DX: R07.89 Other chest pain (principal); I10 Essential (primary) hypertension; E11.9 Type 2 diabetes mellitus without complications; K21.9 Gastro-esophageal reflux disease without esophagitis; I25.10 Atherosclerotic heart disease of native coronary artery without angina pectoris; J44.9 Chronic obstructive pulmonary disease, unspecified; Z87.891 Personal history of nicotine dependence; Z95.1 Presence of aortocoronary bypass graft; Z88.1 Allergy status to other antibiotic agents; Z88.5 Allergy status to narcotic agent; Z88.8 Allergy status to other drugs, medicaments and biological substances; Z79.84 Long term (current) use of oral hypoglycemic drugs; Z79.82 Long term (current) use of aspirin